=== PATIENT | female | born 1990 | race Caucasian/White ===

== ENCOUNTER 2017-01-23 08:52 | Emergency (ER) | payer MEDICAID ==
[~2017-01-23] VITALS: Ht 160 cm; Wt 99.8 kg
--- NOTE | 2017-01-23 09:20 | Urgent Treatment Center Report ---
History of Present Issue Date/Time Seen by Provider 01/23/17 0912 Visit Reason Pt arrived:Walked Presenting Problem:pt states she noticed a rash on her back, chest and legs yesterday. states she has been on diclofenic for approx. 30 days and that is the only change that she has had. Location if Accident: Onset of symptoms date/time:/ or onset unknown for:MEDICAL HX UNKNOWN Have you (or family members/close friends) recently traveled outside the [place]? N If Yes, where/when: Have you had exposure to infectious disease within the past month? TB? Other? Specify: Patient state that yesterday she began itching and noticed that she had a rash on her back, chest, abdomen and legs. States that she started a new medication one month ago and has not changed any soap, detergent or cleaning supplies at her house. States that as soon as she noticed the rash she stopped taking the medication, describes the rash as itchy ALLERGIES Coded Allergies: Sulfa (Sulfonamide Antibiotics) (Intermediate, 01/23/17) History Medical History General Angina: No ID: No Hypertension? No Hyperlipidemia? No CHF? No COPD? No Asthma? No CVA? No Seizures? No Diabetes? No GB Disease: No MRSA? No TB? No Cancer? 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 No: respiratory distress. 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 No Results/Orders Current Medication Orders Sig/Marycarmen Start time Last Medication Dose Route Stop Time Status Admin Methylprednisolone 0 .STK-MED ONE 01/23 929 DC Sodium Succinate .ROUTE Methylprednisolone 125 MG ONCE ONE 01/23 915 DC 01/23 Sodium Succinate IM 01/24 916 0933 Progress [facility] Progress Notes Date 01/23/17 Time 0942 Comment Rash is improving after Solu Medrol Departure Departure Time of Disposition 941 Disposition DC Home or Self Care(routine) Clinical Impression Primary Impression: Allergic reaction, urticaria Condition STABLE Referrals BIMAL NEWSOME (Family) Patient Instructions DI for General Allergic Reactions Additional Instructions Follow up with family doctor Stop taking Diclofenac and advise family doctor of occurance of possible reaction Take medicaiton as prescribed Return if needed Discharge Counseling Counseled pt/family regarding diagnosis, medications/RX, home care, follow up needs Prescriptions Current Visit Scripts Methylprednisolone (Medrol Dose Larry) 4 MG PO UD #1 LARRY TAKE DIRECTED ON PACKAGING Hydroxyzine Pamoate (Vistaril 25MG CAP) 25 MG PO Q6HP PRN itching #30 CAP at 0944
--- NOTE | 2017-01-23 09:20 | Urgent Treatment Center Report ---
History of Present Issue Date/Time Seen by Provider 01/23/17 0912 Visit Reason Pt arrived:Walked Presenting Problem:pt states she noticed a rash on her back, chest and legs yesterday. states she has been on diclofenic for approx. 30 days and that is the only change that she has had. Location if Accident: Onset of symptoms date/time:/ or onset unknown for:MEDICAL HX UNKNOWN Have you (or family members/close friends) recently traveled outside the [place]? N If Yes, where/when: Have you had exposure to infectious disease within the past month? TB? Other? Specify: Patient state that yesterday she began itching and noticed that she had a rash on her back, chest, abdomen and legs. States that she started a new medication one month ago and has not changed any soap, detergent or cleaning supplies at her house. States that as soon as she noticed the rash she stopped taking the medication, describes the rash as itchy ALLERGIES Coded Allergies: Sulfa (Sulfonamide Antibiotics) (Intermediate, 01/23/17) History Medical History General Angina: No MS: No Hypertension? No Hyperlipidemia? No CHF? No COPD? No Asthma? No CVA? No Seizures? No Diabetes? No GB Disease: No MRSA? No TB? No Cancer? 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 No: respiratory distress. 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 No Results/Orders Current Medication Orders Sig/Marycarmen Start time Last Medication Dose Route Stop Time Status Admin Methylprednisolone 0 .STK-MED ONE 01/23 929 DC Sodium Succinate .ROUTE Methylprednisolone 125 MG ONCE ONE 01/23 915 DC 01/23 Sodium Succinate IM 01/24 916 0933 Progress [facility] Progress Notes Date 01/23/17 Time 0942 Comment Rash is improving after Solu Medrol Departure Departure Time of Disposition 941 Disposition DC Home or Self Care(routine) Clinical Impression Primary Impression: Allergic reaction, urticaria Condition STABLE Referrals BIMAL NEWSOME (Family) Patient Instructions DI for General Allergic Reactions Additional Instructions Follow up with family doctor Stop taking Diclofenac and advise family doctor of occurance of possible reaction Take medicaiton as prescribed Return if needed Discharge Counseling Counseled pt/family regarding diagnosis, medications/RX, home care, follow up needs Prescriptions Current Visit Scripts Methylprednisolone (Medrol Dose Larry) 4 MG PO UD #1 LARRY TAKE DIRECTED ON PACKAGING Hydroxyzine Pamoate (Vistaril 25MG CAP) 25 MG PO Q6HP PRN itching #30 CAP at 0944
[2017-01-23] MEDS ORDERED: MEDROL 4MG. DOSE4 MG PO (09:44)
[2017-01-23] MEDS ORDERED: VISTARIL25 M1 PO (09:44)
[2017-01-23 09:51] VITALS: BP 151/94
== END 2017-01-23 09:52 | disposition home or self-care (01) ==
LOC: UTC 08:52
DX: L50.0 Allergic urticaria (principal)

== ENCOUNTER 2017-09-12 19:49 | Emergency (ER) | payer BC ==
[~2017-09-12] VITALS: Ht 160 cm; Wt 99.8 kg
[~2017-09-12 19:49] MED LIST: MEDROL 4MG. DOSE4 MG PO; VISTARIL25 M1 PO
--- OUTSIDE RECORDS SUMMARY | 2017-09-12 19:58 | External Medical Summary Rpt | CCD ---
Author Author , KENRICK CHOUDHARY Address Unknown Phone [email or web address] Care Team Providers Care Furnace Firer Name Role Phone JAVON ALEJANDRO Unavailable Unavailable [facility], Unavailable Unavailable [facility], [facility], [facility] Purpose Continuity of Care Document - 01-23-2017 through 2016 Problems Code Diagnosis DOS Provider Status L509 URTICARIA 01-23-2017 [facility] [id number] ALLERGY 01-23-2017 [facility], [facility] ENCOUNTER Encounters Encounter Start End Date Code Location Performer Type Date OFFICE 39461 JAMES ALEJANDRO OUTPATIEN 7 7 [facility] 25 MINUTES
--- OUTSIDE RECORDS SUMMARY | 2017-09-12 19:58 | External Medical Summary Rpt | CCD ---
Author Author , KENRICK CHOUDHARY Address Unknown Phone [email or web address] Care Team Providers Care Eligibility Services Representative Name Role Phone JAVON ALEJANDRO Unavailable Unavailable [facility], Unavailable Unavailable [facility], [facility] Purpose Continuity of Care Document - 01-23-2017 through 2016 Problems Code Diagnosis DOS Provider Status L509 URTICARIA 01-23-2017 [facility] [id number] ALLERGY 01-23-2017 [facility] ENCOUNTER Encounters Encounter Start End Date Code Location Performer Type Date OFFICE [address] JAMES ALEJANDRO OUTPATIEN 7 7 [facility] 25 MINUTES
--- OUTSIDE RECORDS SUMMARY | 2017-09-12 19:58 | External Medical Summary Rpt | CCD ---
Author Author , KENRICK CHOUDHARY Address Unknown Phone [email or web address] Care Team Providers Care Global Supply Chain Vice President Name Role Phone JAVON ALEJANDRO Unavailable Unavailable [facility], Unavailable Unavailable [facility], [facility] Purpose Continuity of Care Document - 01-23-2017 through 2016 Problems Code Diagnosis DOS Provider Status L509 URTICARIA 01-23-2017 [facility] [id number] ALLERGY 01-23-2017 [facility] ENCOUNTER Encounters Encounter Start End Date Code Location Performer Type Date OFFICE 89232 JAMES ALEJANDRO OUTPATIEN 7 7 [facility] 25 MINUTES
--- OUTSIDE RECORDS SUMMARY | 2017-09-12 19:58 | External Medical Summary Rpt | CCD ---
Author Author , KENRICK CHOUDHARY Address Unknown Phone [email or web address] Care Team Providers Care Metal Leaf Layer Name Role Phone JAVON ALEJANDRO Unavailable Unavailable [facility], Unavailable Unavailable [facility], [facility], [facility] Purpose Continuity of Care Document - 01-23-2017 through 2016 Problems Code Diagnosis DOS Provider Status L509 URTICARIA 01-23-2017 [facility] [id number] ALLERGY 01-23-2017 [facility], [facility] ENCOUNTER Encounters Encounter Start End Date Code Location Performer Type Date OFFICE 39866 JAMES ALEJANDRO OUTPATIEN 7 7 PHYS[facility] 25 MINUTES
--- OUTSIDE RECORDS SUMMARY | 2017-09-12 19:59 | External Medical Summary Rpt ---
Author Author KENRICK Gaytan, KENRICK Gaytan Organization [employer] Address Unknown Phone Unavailable
--- OUTSIDE RECORDS SUMMARY | 2017-09-12 19:59 | External Medical Summary Rpt | CCD ---
Demographics Preferred Language Belarusian Marital Status Unknown Alevism Affiliation Unknown Race Unknown Ethnic Group Unknown Author Author , KENRICK CHOUDHARY Address Unknown Phone Immunization Unable to retrieve immunization data due to connection failure with Immunization Registry. Please try again later.
--- OUTSIDE RECORDS SUMMARY | 2017-09-12 19:59 | External Medical Summary Rpt | CCD ---
Demographics Preferred Language Slovak Marital Status Unknown Yarsani Affiliation Unknown Race Unknown Ethnic Group Unknown Author Author , KENRICK CHOUDHARY Address Unknown Phone Immunization Unable to retrieve immunization data due to connection failure with Immunization Registry. Please try again later.
--- NOTE | 2017-09-12 20:12 | Urgent Treatment Center Report ---
History of Present Issue Date/Time Seen by Provider 09/12/171999 Visit Reason Pt arrived:Walked Presenting Problem:PT STATES SHE WOKE UP WITH A SORE THROAT TODAY, LATER IN THE DAY A BAD H/A. PT TOOK EXCEDRIN AND MOTRIN, WITH NO RELIEF. Location if Accident: Onset of symptoms date/time:/ or onset unknown for:MEDICAL HX UNKNOWN Have you (or family members/close friends) recently traveled outside the [place]? N If Yes, where/when: Have you had exposure to infectious disease within the past month? TB? Other? Specify: c/o sore throat that has worsening throughout today. Woke up with sore throat this morning but throughout the day, GUERIN, mild cough, body aches, subjective fever, chills. Motrin around 2pm and excedrin around 5pm have helped "somewhat but not my throat or head. They are 10/10." and now feeling sweaty. Hasn't taken or tried anything else. No known sick contacts. Had flu vaccine approx 3 weeks ago. Reports "allergies" that required omnicef and steroids approx 2 weeks ago. Reports those symptoms resolved. Source patient Exam Limitations no limitations ALLERGIES Coded Allergies: Sulfa (Sulfonamide Antibiotics) (Intermediate, 01/23/17) sulfamethoxazole (From BACTRIM) (Intermediate, 09/12/17) trimethoprim (From BACTRIM) (Intermediate, 09/12/17) History Medical History General Angina: No PA: No Hypertension? No Hyperlipidemia? No CHF? No COPD? No Asthma? No CVA? No Seizures? No Diabetes? No GB Disease: No MRSA? No TB? No Cancer? No Immunization HX DT/Tetanus 1-4 YRS Surgical Hx Previous Surgery?Y T AND A TUBE TO EARS Social History Smoking Hx Smoker: Never Smoker Tobacco: No Alcohol Alcohol: No Review of Systems All Other Systems Reviewed and Negative Constitutional see HPI Eyes denies drainage, denies pain, denies photophobia, denies vision change ENT see HPI, nose discharge, other (PND). denies: ear pain ("just popping"), ear discharge, nose congestion, throat swelling. Respiratory cough (nonprod "feels like drainage"), denies shortness of breath, denies stridor, denies wheezing Cardiovascular denies chest pain Gastrointestinal denies abdominal pain, denies diarrhea, nausea (earlier today, resolved), denies vomiting Musculoskeletal see HPI Skin denies rash Psychiatric/Neurological see HPI, denies other (dizziness) Physical Exam Vital Signs Vital Signs Date Time Temp Pulse Resp B/P Pulse O2 O2 Flow FiO2 Ox Delivery Rate 09/12 2018 18 09/12 2001 96.7 124 22 144/81 95 General Appearance obese, no apparent distress but obviously doesn't feel well. Tearful "because I feel so bad" Eye Exam - bilateral eye normal exam (x/ tears) Ear, Nose, Throat nasal congestion (mild), pharyngeal erythema, tonsillar swelling (1+ sachi w/o exudate), clear rhinorrhea, sachi EACs and TMs unremarkable Neck non-tender, supple, full range of motion Respiratory Status Yes: non productive cough (once). No: respiratory distress, use of accessory muscles, productive cough. Lung Sounds anterior: lungs clear. posterior: lungs clear. bilateral: lungs clear. 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 No Results/Orders Laboratory Tests 09/12/17 2003: Influenza Type A Ag NOT DETECTED, Influenza Type B Ag NOT DETECTED, Group A Strep Screen NOT DETECTED Current Medication Orders Sig/Marycarmen Start time Last Medication Dose Route Stop Time Status Admin Ketorolac 60 MG ONCE ONE 09/12 2015 DC 09/12 Tromethamine IM 09/12 Ketorolac 0 .STK-MED ONE 09/12 2010 DC Tromethamine .ROUTE Orders Procedure Date/time Status [facility] STREP SCREEN 09/12 2003 Complete [facility] FLU A,B 09/12 2003 Complete Departure Departure Time of Disposition 2028 Disposition DC Home or Self Care(routine) Clinical Impression Primary Impression: Acute viral pharyngitis Secondary Impressions: Headache Qualifiers: Headache type: unspecified Headache chronicity pattern: acute headache Intractability: not intractable Qualified Code: R51 - Headache Condition STABLE Referrals BIMAL NEWSOME (Family) IMMEDIATELY for new or worsening symptoms OR no noticeable improvement over the next 48-72 hours. 911 for difficulty breathing or swallowing. Patient Instructions DI for Viral Pharyngitis Additional Instructions * No sign of bacterial infection. Likely viral. Virus can take 7-14 days to run their course * Monitor Temp. Tylenol every 4 hours as needed no more then 5 times a day or 4000mg in 24 hours and/or ibuprofen every 6 hours as needed no more then 3200mg in 24 hours (as long as your primary care doctor has told you that it is ok to take both) for fever/aches/pain. ER if fever no less than 101 despite tylenol and ibuprofen * REMEMBER you had a shot of toradol in the clinic, a similiar anti-inflammatory to ibuprofen so no ibuprofen for 6-8 hours from the time you had the shot * Encourage fluids, water, gatorade, powerade, pedialyte if infant/toddler/child * warm salt water gargles * warm fluids * sore throat lozenges * sleep elevated * humidifier/vaporizer * rest in quiet, dark room when you get home * * Your throat swab was sent for culture. Those results are typically sent to your primary care. Be sure to follow up in 2-3 days if no improvement so they can review those results and treat if necessary. If you don't have primary care, I recommend you get one but in the mean time, you will have to return to a walk in clinic. Discharge Counseling Counseled pt/family regarding diagnosis, test results, medications/RX, home care, follow up needs at 2032
[2017-09-12 20:22] LABS: UTC STREP SCREEN NOT DETECTED (NOTDETECTED)
[2017-09-12 20:34] VITALS: BP 144/81
== END 2017-09-12 20:37 | disposition home or self-care (01) ==
LOC: UTC 19:49
PROVIDERS: Nurse Practitioner Family
DX: J02.9 Acute pharyngitis, unspecified (principal); R51 Headache; Z88.2 Allergy status to sulfonamides